=== PATIENT | female | born 1980 | race Caucasian/White ===

== ENCOUNTER 2022-08-16 08:31 | Day surgery (SDC) | payer MEDICAID ==
[~2022-08-16] VITALS: Ht 180.3 cm; Wt 76.2 kg
[2022-08-16 08:45] VITALS: BP 106/61
[2022-08-16] MEDS ORDERED: IBUP200C2 PO (09:36)
[2022-08-16] MEDS ORDERED: LIDOcaine 1% 30ml preserv. free vial IJ STA (09:44)
--- NOTE | 2022-08-16 10:33 | NUR ---
1033 Us drain to left buttock successfully drained 100 ml serosanguineous fluid, tolerated well. No pain noted. Instructed by doctor to lay flat to apply pressure to site.
[2022-08-16 10:40] VITALS: BP 95/65
[2022-08-16 10:54] VITALS: BP 94/61
[2022-08-16 11:10] VITALS: BP 100/59
[2022-08-16 11:25] VITALS: BP 97/65
[2022-08-16 11:40] VITALS: BP 99/62
== END 2022-08-16 12:04 | disposition home or self-care (01) ==
LOC: SSTAY O 08:31
PROVIDERS: ATTEND Radiology Vascular & Interventional Radiology
DX: L02.31 Cutaneous abscess of buttock (principal); Z88.2 Allergy status to sulfonamides; Z91.040 Latex allergy status; G43.909 Migraine, unspecified, not intractable, without status migrainosus; Z79.899 Other long term (current) drug therapy; Z98.890 Other specified postprocedural states; Z90.710 Acquired absence of both cervix and uterus
CPT/HCPCS: 10140; 50390; 76942; A6449

== ENCOUNTER 2022-09-12 07:59 | Day surgery (SDC) | payer MEDICAID ==
[2022-09-06 16:22] LABS: BASOPHILS % (AUTO) 0.4 % (0-1); EOSINOPHILS # (AUTO) 0.1 X10'3 (0-0.9); EOSINOPHILS % (AUTO) 1.3 % (0-6); LYMPHOCYTES # (AUTO) 1.5 X10'3 (1.1-4.8); MEAN CORPUSCULAR HGB CONC 34.8 g/dL (33.0-36.5); MEAN CORPUSCULAR VOLUME 89.1 FL (78-98); MEAN PLATELET VOLUME 7.2 FL (7.4-10.4); MONOCYTES # (AUTO) 0.3 X10'3 (0-0.9); MONOCYTES % (AUTO) 4.4 % (2-12); NEUTROPHILS # (AUTO) 4.9 X10'3 (1.8-7.7); NEUTROPHILS % (AUTO) 71.9 % (42-75); PRE OP HEMATOCRIT 40.2 % (35.0-45.0); PRE OP PLATELET COUNT 238 X10'3 (140-440); RED BLOOD COUNT 4.51 X10'6 (4.20-5.60); RED CELL DISTRIBUTION WIDTH 12.7 % (11.5-14.5)
[2022-09-06 16:36] LABS: ALBUMIN/GLOBULIN RATIO 1.3 (1.1-1.5); ALKALINE PHOSPHATASE 46 IU/L (46-116); BLOOD UREA NITROGEN 13 MG/DL (7-18); BUN/CREATININE RATIO 17.8 (6.6-38.0); CHLORIDE 103 MMOL/L (99-107); CREATININE 0.73 MG/DL (0.40-0.90); PRE OP ALT 16 U/L (30-65); PRE OP ANION GAP 6 (8-16); PRE OP BILIRUB, TOTAL 0.6 MG/DL (0.0-1.0); PRE OP GLUCOSE 77 MG/DL (70-104); PRE OP SODIUM 137 MMOL/L (135-145); TOTAL CARBON DIOXIDE 27.7 MMOL/L (24-32); TOTAL PROTEIN 7.2 G/DL (6.4-8.2); eGFR 87 ML/MIN
[2022-09-06 16:40] LABS: PRE OP AST 31 U/L (10-37); PRE OP POTASSIUM 4.1 MMOL/L (3.4-5.1)
[~2022-09-12] VITALS: Ht 180.3 cm; Wt 78.1 kg
[2022-09-12] VITALS (8 sets, daily range): BP systolic 100–121; BP diastolic 66–79
[~2022-09-12 07:59] MED LIST: ASPI-147 PO; IBUP200C2 PO; ceFAZolin inj. 2,000 MG in dextrose 5%-water 100 ML IV ONE; famotidine 20mg tablet PO ONE; ringers solution, lacted 1,000 ML IV SCH; scopolamine 1mg/72 hr patch TD ONE; scopolamine 1mg/72 hr patch TD SCH
[2022-09-12] MEDS ORDERED: LIDOcaine 1% 30ml preserv. free vial ONE ×2 (08:16→09:04)
[2022-09-12] MEDS ORDERED: BUPIVAcaine/PF 2.5mg/ml (0.25%) 10ml vial ONE ×2 (08:16→09:04)
[2022-09-12] MEDS ORDERED: fentaNYL/PF 50MCG/1 ML 2ML syringe ONE (08:54)
[2022-09-12] MEDS ORDERED: midazolam 1 mg/ML 2ml injection ONE (08:55)
[2022-09-12] MEDS ORDERED: propofol inj 20 ML IV ONE (08:56)
[2022-09-12] MEDS ORDERED: LIDOcaine 2% (20mg/ml) 5ml vial ONE (08:56)
[2022-09-12] MEDS ORDERED: rocuronium 10mg/ml inj IV ONE (08:56)
[2022-09-12] MEDS ORDERED: ringers solution, lacted 1,000 ML IV SCH (09:05)
[2022-09-12] MEDS ORDERED: meperidine/PF 25mg/ml syringe IV PRN ×3 (09:05)
[2022-09-12] MEDS ORDERED: morphine 4 MG/ML inj SYRINge IV PRN (09:05)
[2022-09-12] MEDS ORDERED: proCHLORperazine 10 MG/2 ml inj IV PRN (09:05)
[2022-09-12] MEDS ORDERED: morphine 2 MG/ML inj. syringe IV PRN (09:05)
[2022-09-12] MEDS ORDERED: ondansetron/PF 4mg/2ml inj IV PRN (09:05)
[2022-09-12] MEDS ORDERED: ePHEDrine 50MG/ML INJ. ONE (10:16)
[2022-09-12] MEDS ORDERED: ondansetron/PF 4mg/2ml inj ONE (10:16)
[2022-09-12] MEDS ORDERED: dexamethasone sod phosphate 4mg/ml inj. ONE (10:16)
--- NOTE | 2022-09-12 10:35 | NUR ---
Received from OR via BED, accompanied by Anesthesiologist and report given by Anesthesiologist. PATIENT WAKING UP, NO S/S OF PAIN, V/S WNL, SCD ON, 20G TO RUE, LEFT BUTTOCKS DRESSSING CDI SITE CLEAN W/ NO S/S OF COMPLICATIONS AND MALIK DRAIN W/ MINIMAL OUTPUT.
[2022-09-12] MEDS ORDERED: HYDROcodone/acetaminophen 5mg/325mg tablet PO PRN (11:00)
--- NOTE | 2022-09-12 11:35 | NUR ---
PATIENT A&OX4, DENIES PAIN, V/S WNL, SCD ON, 20G TO RUE D/C , LEFT BUTTOCKS DRESSSING CDI SITE CLEAN W/ NO S/S OF COMPLICATIONS AND MALIK DRAIN W/ MINIMAL OUTPUT. . I HAVE REVIEWED D/C INSTRUCTIONS WITH PATIENT and they have verbalized understanding patient d/c home with all belongings and family gave transport home.
== END 2022-09-12 11:45 | disposition home or self-care (01) ==
LOC: PAS 07:59
PROVIDERS: ATTEND Surgery
DX: S30.0XXA Contusion of lower back and pelvis, initial encounter (principal); G43.909 Migraine, unspecified, not intractable, without status migrainosus; V80.010A Animal-rider injured by fall from or being thrown from horse in noncollision accident, initial encounter; Y93.89 Activity, other specified; Y92.89 Other specified places as the place of occurrence of the external cause; Y99.8 Other external cause status; Z79.899 Other long term (current) drug therapy; Z98.890 Other specified postprocedural states; Z88.2 Allergy status to sulfonamides; Z91.040 Latex allergy status; Z90.710 Acquired absence of both cervix and uterus
CPT/HCPCS: 10140; 36415; 80053; 82948; 85025; J0690; J1100; J2175; J2250; J2405; J2704; J3010; J3490; J7030; J7060; J7120; Z7506; Z7508; Z7512; A4215; A4618; A7000

== ENCOUNTER 2022-09-25 20:00 | Emergency (ER) | payer MEDICAID ==
[~2022-09-25] VITALS: Ht 180.3 cm; Wt 76.4 kg
[~2022-09-25 20:00] MED LIST changes: -ceFAZolin inj. 2,000 MG in dextrose 5%-water 100 ML IV ONE; -famotidine 20mg tablet PO ONE; -ringers solution, lacted 1,000 ML IV SCH; -scopolamine 1mg/72 hr patch TD ONE; -scopolamine 1mg/72 hr patch TD SCH
[2022-09-25 20:20] VITALS: BP 103/79
[2022-09-25] MEDS ORDERED: AMOX-117 PO (21:17)
[2022-09-25] MEDS ORDERED: amox tr/potassium clavulanate 875/125mg TAB PO ONE (21:20)
== END 2022-09-25 21:23 | disposition home or self-care (01) ==
LOC: ER 20:01
DX: H66.91 Otitis media, unspecified, right ear (principal); Z88.2 Allergy status to sulfonamides; Z91.018 Allergy to other foods; Z88.8 Allergy status to other drugs, medicaments and biological substances; Z91.040 Latex allergy status
CPT/HCPCS: 99283